=== PATIENT | female | born 1990 ===

== ENCOUNTER → 2018-12-12 | Outpatient (CLI) | payer BC ==
[2018-12-15 10:07] LABS: Hepatitis B Surface Antibody Negative
[2018-12-15 10:38] LABS: Hepatitis A Total Antibody Positive
[2018-12-15 14:34] LABS: Hepatitis B Core Total AB Negative
[2018-12-15 14:36] LABS: Hepatitis B Surface Antigen Negative (Negative)
[2018-12-15 14:37] LABS: Hepatitis C Antibody Negative (Negative)
== END | disposition home or self-care (01) ==
LOC: LAB 16:13
PROVIDERS: ATTEND Nurse Practitioner
DX: Z20.2 Contact with and (suspected) exposure to infections with a predominantly sexual mode of transmission (principal)
CPT/HCPCS: 36415; 86703; 86704; 86706; 86708; 86803; 87340; 87591

== ENCOUNTER → 2019-01-15 | Outpatient (CLI) | payer BC | END | disposition home or self-care (01) | LOC: LAB 13:00 | PROVIDERS: ATTEND Nurse Practitioner Family | DX: N39.0 Urinary tract infection, site not specified (principal) | CPT/HCPCS: 87086 ==